=== PATIENT | male | born 1995 | race Caucasian/White ===

== ENCOUNTER 2017-02-06 22:43 | Day surgery (SDC) | payer BC ==
[~2017-02-06 22:43] MED LIST: AUGMENTIN875 MG/TA1 PO; BACTRIM DS TAB1 EAC2 PO; CLEOCIN HCL300 M1 PO; NO MEDICATIONS; PREDNISONE20 M1 PO; PREDNISONE20 MG PO
[2017-02-06] MEDS ORDERED: GAS RELIEF180 M1 PO (22:53)
[2017-02-06] MEDS ORDERED: TUMS200 MG PO (22:54)
[2017-02-06 23:52] LABS: BASO % 0.2 % (0-2); HCT-HEMATOCRIT 39.9 % (36.0-53.5); HGB-HEMOGLOBIN 14.1 gm/dl (13.5-17.0); IMMATURE GRANULOCYTES ABSOLUTE 0.02 tho/cmm (0-0.03); IMMATURE GRANULOCYTES PERCENT 0.2 % (0-0.3); LYMPH % 8.4 % (20-45); LYMPH ABSOLUTE COUNT 0.9 tho/cmm (0.8-4.5); MCH (MEAN CORPUSCULAR HGB) 30.7 pg (28.0-32.0); MCHC MEAN CORPUSCULAR HGB CONC 35.3 % (32.0-36.0); MCV (MEAN CELL VOLUME) 86.7 fl (82.0-96.0); MEAN PLATELET VOLUME 9.4 cmc (9.4-12.4); MONOCYTE ABSOLUTE COUNT 0.4 tho/cmm (0.0-1.2); NEUTROPHIL ABSOLUTE COUNT 9.5 tho/cmm (1.6-8.0); NEUTROPHIL-AUTOMATED 9.5 tho/cmm (1.6-8.0); NEUTROPHILS % 87.2 % (40-80); PLATELET COUNT 267 tho/cmm (150-450); RED CELL DISTRIBUTION WIDTH 12.5 % (12.4-16.4); WHITE BLOOD COUNT 10.9 tho/cmm (4.0-10.0)
[2017-02-07 00:04] LABS: ALB/GLOB RATIO 1.3 (0.8-2.0); ALBUMIN 4.2 g/dl (3.5-5.0); ALKALINE PHOSPHATASE 57 U/L (33-138); ALT/SGPT 17 U/L (12-78); ANION GAP 16 mmol/L (0-20); AST/SGOT 14 U/L (10-40); BILIRUBIN,TOTAL 0.9 mg/dl (0.0-1.5); BLOOD UREA NITROGEN 15 mg/dl (6-24); CALCIUM 9.5 mg/dl (8.5-10.5); CARBON DIOXIDE-VENOUS 23 mmol/L (22-32); CHLORIDE 100 mmol/l (96-110); CREATININE 0.98 mg/dl (0.60-1.30); GLUCOSE 125 mg/dL (70-110); LIPASE 98 U/L (73-393); POTASSIUM 3.2 mmol/L (3.7-5.1); SODIUM 136 mmol/L (135-145); eGFR VALUE FOR BLACK >90 mL/Min
[2017-02-07 01:27] LABS: URINE BILIRUBIN NEGATIVE (NEG); URINE BLOOD NEGATIVE (NEG); URINE GLUCOSE (UA) NEGATIVE (NEG); URINE KETONE LARGE (NEG); URINE LEUKOCYTE ESTERASE NEGATIVE (NEG); URINE NITRITE NEGATIVE (NEG); URINE PH 6.5 (5.0-8.0); URINE PROTEIN SMALL (NEG)
[2017-02-07 01:37] LABS: URINE APPEARANCE CLEAR; URINE COLOR YELLOW
[2017-02-07 01:39] LABS: URINE EPITHELIAL CELLS RARE /[HPF] (0-10); URINE RBC RARE /[HPF] (0-5); URINE WBC RARE /[HPF] (0-5)
[2017-02-07 05:21] LABS: BASO % 0.1 % (0-2); EOS % 0.1 % (0-7); HCT-HEMATOCRIT 40.1 % (36.0-53.5); HGB-HEMOGLOBIN 13.8 gm/dl (13.5-17.0); IMMATURE GRANULOCYTES ABSOLUTE 0.05 tho/cmm (0-0.03); IMMATURE GRANULOCYTES PERCENT 0.4 % (0-0.3); LYMPH % 11.8 % (20-45); LYMPH ABSOLUTE COUNT 1.7 tho/cmm (0.8-4.5); MCH (MEAN CORPUSCULAR HGB) 30.3 pg (28.0-32.0); MCHC MEAN CORPUSCULAR HGB CONC 34.4 % (32.0-36.0); MCV (MEAN CELL VOLUME) 88.1 fl (82.0-96.0); MEAN PLATELET VOLUME 9.1 cmc (9.4-12.4); MONO % 10.3 % (0-12); MONOCYTE ABSOLUTE COUNT 1.5 tho/cmm (0.0-1.2); NEUTROPHIL ABSOLUTE COUNT 10.8 tho/cmm (1.6-8.0); NEUTROPHIL-AUTOMATED 10.8 tho/cmm (1.6-8.0); NEUTROPHILS % 77.3 % (40-80); PLATELET COUNT 248 tho/cmm (150-450); RED BLOOD COUNT 4.55 mil/cmm (4.40-5.70); RED CELL DISTRIBUTION WIDTH 12.6 % (12.4-16.4)
[2017-02-07 05:27] LABS: PROTHROMBIN TIME 11.9 SECONDS (9.0-13.6)
[2017-02-07 05:36] LABS: ALB/GLOB RATIO 1.2 (0.8-2.0); ALBUMIN 3.8 g/dl (3.5-5.0); ALKALINE PHOSPHATASE 55 U/L (33-138); ALT/SGPT 16 U/L (12-78); ANION GAP 11 mmol/L (0-20); AST/SGOT 9 U/L (10-40); BILIRUBIN,TOTAL 0.9 mg/dl (0.0-1.5); BLOOD UREA NITROGEN 11 mg/dl (6-24); CALCIUM 8.9 mg/dl (8.5-10.5); CARBON DIOXIDE-VENOUS 29 mmol/L (22-32); CHLORIDE 102 mmol/l (96-110); CREATININE 0.99 mg/dl (0.60-1.30); GLUCOSE 90 mg/dL (70-110); POTASSIUM 3.8 mmol/L (3.7-5.1); SODIUM 138 mmol/L (135-145); eGFR VALUE FOR BLACK >90 mL/Min
[2017-02-07] MEDS ORDERED: LORTAB 5-325 M1 EAC1 PO (16:24)
--- NOTE | 2017-02-07 16:45 | NUR ---
VIRTUAL CARE NOTE: PT RESTING ON BED, FATHER AT BEDSIDE. PT STATES DOING OK, STILL HAVING SOME PAIN YET WITH MOVEMENTS. POST-OP CARE REINFORCED, DISCHARGE PLAN DISCUSSED WITH PT. WILL PLAN DC HOME AFTER DINNER. PT WILL STAYS AT HIS PARENT'S HOUSE TONIGHT. DENIES NEEDS OR CONCERNS.
[2017-07-15] MEDS ORDERED: HYDROCODON-ACE1 EA16 PO (10:27)
[2017-07-15] MEDS ORDERED: LORAZEPAM0.5 M1 PO (10:27)
[2017-07-15] MEDS ORDERED: VITAMIN C500 M4 PO (10:33)
[2017-07-15] MEDS ORDERED: IBUPROFEN200 M2 PO (10:33)
[2017-07-16] MEDS ORDERED: CLEOCIN HCL300 M1 PO (08:15)
[2017-07-16] MEDS ORDERED: HYCET ELIXIR PO (08:17)
[2017-07-16] MEDS ORDERED: DELTASONE20 MG PO (08:17)
== END 2017-02-07 19:20 ==
LOC: EDMED 22:43 → 5WD 02-07 02:44 → ORW 02-07 08:18 → PACU 02-07 08:47 → 5WD 02-07 09:50
PROVIDERS: Emergency Medicine; Surgery
PROC: 0DTJ0ZZ Resection of Appendix, Open Approach (ICD-10-PCS; principal; 2017-02-07)
DX: K35.80 Unspecified acute appendicitis (principal); J45.990 Exercise induced bronchospasm; Z98.890 Other specified postprocedural states
CPT/HCPCS: J1170; J1335; J1450; J2270; J2405; J2543; J3010; J7030; Q9967